=== PATIENT | female | born 1995 | race Caucasian/White ===

== ENCOUNTER 2023-11-08 06:28 | Day surgery (SDC) | payer MEDICAID ==
[~2023-11-08] VITALS: Ht 154.9 cm; Wt 65.0 kg
[2023-11-08] VITALS (11 sets, daily range): BP systolic 95–133; BP diastolic 57–90; PULSE 62–102; RESP 10–16; TEMP 98.7; O2SAT 98–100
[~2023-11-08 06:28] MED LIST: NO HOME MEDS
[2023-11-08] MEDS: famotidine 20mg tablet PO ONE (07:45)
[2023-11-08] MEDS: ringers solution, lacted 1,000 ML IV SCH (07:45)
[2023-11-08 07:53] LABS: BASOPHILS % (AUTO) 0.4 % (0-1); EOSINOPHILS # (AUTO) 0.2 X10'3 (0-0.9); EOSINOPHILS % (AUTO) 2.6 % (0-6); LYMPHOCYTES # (AUTO) 1.9 X10'3 (1.1-4.8); LYMPHOCYTES % (AUTO) 32.9 % (21-51); MEAN CORPUSCULAR HGB CONC 33.8 g/dL (33.0-36.5); MEAN PLATELET VOLUME 8.1 FL (7.4-10.4); MONOCYTES # (AUTO) 0.5 X10'3 (0-0.9); MONOCYTES % (AUTO) 8.1 % (2-12); NEUTROPHILS # (AUTO) 3.3 X10'3 (1.8-7.7); PRE OP HEMATOCRIT 40.3 % (35.0-45.0); PRE OP HEMOGLOBIN 13.6 g/dL (12.0-16.0); PRE OP PLATELET COUNT 321 X10'3 (140-440); PRE OP WHITE BLOOD COUNT 5.9 10'3 (4.8-10.8); RED BLOOD COUNT 4.68 X10'6 (4.20-5.60); RED CELL DISTRIBUTION WIDTH 12.5 % (11.5-14.5)
[2023-11-08 08:00] LABS: HCG SERUM QL NEGATIVE
[2023-11-08 08:10] LABS: ALBUMIN 3.6 G/DL (3.4-5.0); ALBUMIN/GLOBULIN RATIO 1.1 (1.1-1.5); ALKALINE PHOSPHATASE 59 IU/L (46-116); BLOOD UREA NITROGEN 7 MG/DL (7-18); BUN/CREATININE RATIO 9.5 (10.0-20.0); CALCIUM 8.6 MG/DL (8.5-10.1); CHLORIDE 105 MMOL/L (99-107); CREATININE 0.74 MG/DL (0.40-0.90); PRE OP ALT 30 U/L (30-65); PRE OP ANION GAP 13 (8-16); PRE OP AST 19 U/L (10-37); PRE OP BILIRUB, TOTAL 0.4 MG/DL (0.0-1.0); PRE OP GLUCOSE 82 MG/DL (70-104); PRE OP POTASSIUM 3.9 MMOL/L (3.4-5.1); PRE OP SODIUM 139 MMOL/L (135-145); TOTAL CARBON DIOXIDE 21.3 MMOL/L (24-32); TOTAL PROTEIN 6.8 G/DL (6.4-8.2); eCRCL 85 ML/MIN; eGFR > 90 ML/MIN
[2023-11-08] MEDS ORDERED: BUPIVAcaine/PF 2.5mg/ml (0.25%) 10ml vial ONE (11:02)
[2023-11-08] MEDS ORDERED: ringers solution, lacted 1,000 ML IV SCH (11:15)
[2023-11-08] MEDS ORDERED: meperidine/PF 25mg/ml syringe IV PRN ×2 (11:15)
[2023-11-08] MEDS ORDERED: hydrALAZINE 20mg/ml inj. IV PRN (11:15)
[2023-11-08] MEDS ORDERED: proCHLORperazine 10 MG/2 ml inj IV PRN (11:15)
[2023-11-08] MEDS ORDERED: ondansetron/PF 4mg/2ml inj IV PRN (11:15)
[2023-11-08] MEDS ORDERED: labetalol 20mg/4ml (5mg/ml) syringe IV PRN (11:15)
[2023-11-08] MEDS ORDERED: sevoflurane 250ml liquid IH ONE (11:16)
[2023-11-08] MEDS ORDERED: fentaNYL/PF 50MCG/1 ML 2ML syringe ONE (11:26)
[2023-11-08] MEDS ORDERED: rocuronium 10mg/ml inj IV ONE (11:36)
[2023-11-08] MEDS ORDERED: dexamethasone sod phosphate 4mg/ml inj. ONE (11:36)
[2023-11-08] MEDS ORDERED: midazolam 1 mg/ML 2ml injection ONE (11:36)
[2023-11-08] MEDS ORDERED: LIDOcaine 2% (20mg/ml) 5ml vial ONE (11:36)
[2023-11-08] MEDS ORDERED: propofol inj 20 ML IV ONE (11:36)
[2023-11-08] MEDS ORDERED: ondansetron/PF 4mg/2ml inj ONE (11:37)
[2023-11-08] MEDS: BUPIVAcaine 2.5mg/ml inj 50ml vial (contains preservative) SQ ONE (12:00)
[2023-11-08] MEDS ORDERED: glycopyrrolate 0.2mg/ml inj ONE (12:09)
[2023-11-08] MEDS ORDERED: neostigmine methylsulfate 1 MG/ML 10ml vial ONE (12:09)
[2023-11-08] MEDS: meperidine/PF 25mg/ml syringe IV PRN (12:25)
[2023-11-08] MEDS: acetaminophen 1,000mg/100ml IV 100 ML IV ONE (12:28)
[2023-11-08] MEDS: morphine 4 MG/ML inj SYRINge IV PRN (12:33)
[2023-11-08] MEDS: morphine 2 MG/ML inj. syringe IV PRN (13:03)
[2023-11-08] MEDS: HYDROcodone/acetaminophen 10/325mg tab PO ONE (13:38)
== END 2023-11-08 13:57 | disposition home or self-care (01) ==
LOC: PAS 06:28
PROVIDERS: ATTEND Obstetrics & Gynecology
DX: Z30.2 Encounter for sterilization (principal); K21.9 Gastro-esophageal reflux disease without esophagitis; Z87.891 Personal history of nicotine dependence; Z79.1 Long term (current) use of non-steroidal anti-inflammatories (NSAID); Z79.891 Long term (current) use of opiate analgesic; Z79.899 Other long term (current) drug therapy
CPT/HCPCS: 36415; 58670; 80053; 82948; 84703; 85025; 86885; 86900; 86901; J0131; J1100; J2175; J2250; J2270; J2405; J2704; J2710; J3010; J3490; J7030; J7120; Z7506; Z7508; Z7512; A4618